=== PATIENT | male | born 1955 | race Caucasian/White ===

== ENCOUNTER → 2024-03-18 12:39 | Outpatient (BNVA) | payer MEDICARE, SELFPAY | PROVIDERS: PCP Physician Assistant; Referring Provider Physician Assistant; Visit Provider Urology | DX: N42.89 Other specified disorders of prostate (principal); R97.20 Elevated prostate specific antigen [PSA] | CPT/HCPCS: 99203 ==

== ENCOUNTER → 2024-10-19 15:06 | Outpatient (BNVA) | payer MEDICARE, SELFPAY | PROVIDERS: PCP Physician Assistant; Referring Provider Physician Assistant; Visit Provider Urology | DX: N42.89 Other specified disorders of prostate (principal); R97.20 Elevated prostate specific antigen [PSA] | CPT/HCPCS: 98013 ==

== ENCOUNTER 2025-04-13 02:51 | Outpatient (CLI) | payer MEDICARE, SELFPAY ==
--- NOTE | 2025-04-13 07:00 | DI.RAD_ITS ---
Exam(s) XR FOOT LT COMPLETE EXAM: XR FOOT LT COMPLETE CLINICAL HISTORY: Left foot pain,m79.672. TECHNIQUE: 2D digital imaging was performed. COMPARISON: No exams were available for comparison FINDINGS: 3 views No evidence of fracture or diastasis of the Lisfranc joint. There is moderate-advanced degenerative change in the great toe metatarsophalangeal joint. Other MTP joints appear unremarkable as do the interphalangeal joints and tarsometatarsal joints. There is exaggerated arch. Small enthesophyte is noted on the posterior calcaneus Achilles insertion site. There is no inferior calcaneal spur and there is no calcifications in the plantar fascia. There is some soft tissue thickening lateral to the head of the 5th metatarsal. There is no radiopaque foreign body nor calcification in the soft tissues at this level and there is no evidence of osteomyelitis in the adjacent 5th metatarsal head. 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 DATA REPOSITORY: RADIATION DOSE DELIVERED:
== END 2025-04-13 03:11 ==
PROVIDERS: PCP Physician Assistant Surgical; Visit Provider Podiatrist
DX: G57.62 Lesion of plantar nerve, left lower limb (principal); M19.072 Primary osteoarthritis, left ankle and foot; M67.02 Short Achilles tendon (acquired), left ankle; M76.72 Peroneal tendinitis, left leg; Q66.72 Congenital pes cavus, left foot
CPT/HCPCS: 99213; 73630

== ENCOUNTER → 2025-07-15 10:06 | Outpatient (BNVA) | payer MEDICARE, SELFPAY | PROVIDERS: PCP Family Medicine; Referring Provider Physician Assistant Surgical; Visit Provider Urology | DX: R97.20 Elevated prostate specific antigen [PSA] (principal) | CPT/HCPCS: 99213 ==